=== PATIENT | female | born 1955 | race Caucasian/White ===

== ENCOUNTER 2018-01-01 10:15 | Outpatient (CLI) | payer BC | END 2018-01-01 10:16 | disposition home or self-care (01) | LOC: BICMAMMO 10:15 | DX: Z12.31 Encounter for screening mammogram for malignant neoplasm of breast (principal); R92.1 Mammographic calcification found on diagnostic imaging of breast; Z80.3 Family history of malignant neoplasm of breast | CPT/HCPCS: 77063; 77067 ==

== ENCOUNTER 2018-01-07 13:12 | Outpatient (CLI) | payer BC | END 2018-01-07 13:13 | disposition home or self-care (01) | LOC: BICMAMMO 13:12 | PROVIDERS: ATTEND Family Medicine | DX: R92.1 Mammographic calcification found on diagnostic imaging of breast (principal); M16.12 Unilateral primary osteoarthritis, left hip | CPT/HCPCS: G0279 ==

== ENCOUNTER 2019-03-28 12:44 | Outpatient (CLI) | payer BC ==
--- NOTE | 2019-04-01 07:33 | RAD ---
EXAM: Chest 2 views: HISTORY: Asthmatic bronchitis COMPARISON: 02/27/2017 FINDINGS: Mild stable increased bronchovascular markings bilaterally. Heart size:Within normal limits. Lungs:Clear of acute process. Atherosclerotic changes of the aorta. No confluent pneumonia, overt edema, pleural effusion, pneumothorax, or other significant acute proce ss. IMPRESSION: Atherosclerosis of the aorta. No acute intrathoracic disease.
== END 2019-03-28 12:45 | disposition home or self-care (01) ==
LOC: BICRAD 12:44
PROVIDERS: ATTEND Family Medicine
DX: J45.909 Unspecified asthma, uncomplicated (principal); I70.0 Atherosclerosis of aorta
CPT/HCPCS: 71046

== ENCOUNTER 2020-06-01 11:00 | Outpatient (CLI) | payer BC ==
--- NOTE | 2020-06-01 14:14 | RAD ---
EXAM: RIGHT KNEE FOUR VIEWS: 06/01/20 HISTORY: Pain without injury for one week. FINDINGS: Fairly severe osteoarthrosis and degenerative changes of the all three compartments of the right knee joint with prominent narrowing more so involving the medial compartment. No acute fracture or disloc ation. There does appear to be some suprapatellar recess fluid. IMPRESSION: Severe osteoarthrosis of all three compartments with the most marked narrowing involving the medial a nd femoropatellar compartments without acute process. POS: RRE
== END 2020-06-01 11:01 | disposition home or self-care (01) ==
LOC: BICRAD 11:00
PROVIDERS: ATTEND Family Medicine
DX: M25.561 Pain in right knee (principal); M17.11 Unilateral primary osteoarthritis, right knee

== ENCOUNTER 2022-03-01 11:53 | Outpatient (CLI) | payer MEDICARE, OTHER | END 2022-03-01 11:54 | disposition home or self-care (01) | LOC: BICMAMMO 11:53 | PROVIDERS: ATTEND Obstetrics & Gynecology | DX: Z12.31 Encounter for screening mammogram for malignant neoplasm of breast (principal); Z91.89 Other specified personal risk factors, not elsewhere classified | CPT/HCPCS: 77063; 77067 ==

== ENCOUNTER 2024-04-24 12:03 | Outpatient (CLI) | payer MEDICARE, OTHER | END 2024-04-24 12:04 | disposition home or self-care (01) | LOC: BICMAMMO 12:03 | PROVIDERS: ATTEND Family Medicine | DX: Z12.31 Encounter for screening mammogram for malignant neoplasm of breast (principal); Z91.89 Other specified personal risk factors, not elsewhere classified | CPT/HCPCS: 77067 ==

== ENCOUNTER 2025-04-27 12:43 | Outpatient (CLI) | payer MEDICARE, OTHER | END 2025-04-27 12:44 | disposition home or self-care (01) | LOC: BICMAMMO 12:43 | PROVIDERS: ATTEND Family Medicine | DX: Z12.31 Encounter for screening mammogram for malignant neoplasm of breast (principal); Z85.850 Personal history of malignant neoplasm of thyroid; Z91.89 Other specified personal risk factors, not elsewhere classified | CPT/HCPCS: 77063; 77067 ==